=== PATIENT | male | born 1995 | race African-American/Black ===

== ENCOUNTER 2017-07-25 10:54 | Emergency (ER) | payer MEDICAID ==
[~2017-07-25] VITALS: Ht 172.7 cm; Wt 93.0 kg
[2017-07-25] MEDS ORDERED: KETOROLAC 60MG/2ML VIAL IM ONE (13:30)
[2017-07-25] MEDS ORDERED: LIDOCAINE HCL 1% 20ML VIAL (Pyxis) INJ INFIL ONE (13:30)
[2017-07-25 14:04] VITALS: BP 124/78
== END 2017-07-25 14:06 | disposition home or self-care (01) ==
LOC: ER 12:08
DX: L02.31 Cutaneous abscess of buttock (principal)
CPT/HCPCS: 96372; 99283; J1885; J3490

== ENCOUNTER 2017-07-27 22:17 | Emergency (ER) | payer MEDICAID ==
[~2017-07-27] VITALS: Ht 172.7 cm; Wt 93.0 kg
[2017-07-28] MEDS ORDERED: KETOROLAC 60MG/2ML VIAL IM ONE (03:45)
[2017-07-28] MEDS ORDERED: LIDOCAINE HCL 1% 20ML VIAL (Pyxis) INJ INFIL ONE (03:45)
[2017-07-28 04:52] VITALS: BP 125/70
== END 2017-07-28 04:53 | disposition home or self-care (01) ==
LOC: ER 07-28 01:07
DX: L02.31 Cutaneous abscess of buttock (principal)
CPT/HCPCS: 10060; 96372; 99283; J1885; J3490; X7700; Z7610